=== PATIENT | male | born 1975 | race Two or more races ===

== ENCOUNTER 2017-04-15 11:38 | Emergency (ER) | payer OTHER ==
[~2017-04-15] VITALS: Ht 167.6 cm; Wt 83.0 kg
[2017-04-15 11:50] VITALS: BP 122/79
[2017-04-15] MEDS ORDERED: NKM (11:50)
[2017-04-15] MEDS ORDERED: Proparacaine 0.5% Opth Soln 15ml BOTH EYES ONE (12:15)
[2017-04-15] MEDS ORDERED: Fluorescein Strips RIGHT EYE ONE (12:15)
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
[2017-04-15] MEDS ORDERED: OCUFLOX5 ML OP (12:52)
[2017-04-15 13:05] VITALS: BP 122/79
== END 2017-04-15 13:24 | disposition home or self-care (01) ==
LOC: EMR 12:20
DX: T65.891A Toxic effect of other specified substances, accidental (unintentional), initial encounter (principal); T26.61XA Corrosion of cornea and conjunctival sac, right eye, initial encounter; Y92.511 Restaurant or cafe as the place of occurrence of the external cause; Y99.0 Civilian activity done for income or pay
CPT/HCPCS: 99283